=== PATIENT | male | born 1975 ===

== ENCOUNTER 2017-08-01 07:42 | Outpatient (CLI) | payer OTHER ==
[~2017-08-01] VITALS: Ht 165.1 cm; Wt 68.0 kg
== END 2017-08-01 08:00 | disposition home or self-care (01) ==
LOC: OFIC 805 07:42
DX: J32.0 Chronic maxillary sinusitis (principal); J31.0 Chronic rhinitis; H81.13 Benign paroxysmal vertigo, bilateral